=== PATIENT | male | born 1940 | race Caucasian/White ===

== ENCOUNTER 2018-10-04 14:47 | Outpatient (CLI) | payer MEDICARE ==
[~2018-10-04 14:47] MED LIST: HYDR1TAB PO; LOVA10TA56 PO; PRED20TA PO
[2018-10-04] MEDS ORDERED: CHOL100046 PO (15:49)
[2018-10-04] MEDS ORDERED: UBIQ100C3 PO (15:49)
[2018-10-04] MEDS ORDERED: LISI40TA4 PO (15:49)
[2018-10-04] MEDS ORDERED: IBUP-1984 PO (15:49)
[2018-10-04] MEDS ORDERED: ASPI-1265 PO (15:49)
[2018-10-04 17:02] LABS: BASOPHILS # (AUTO) 0.1 X10'3 (0-0.2); BASOPHILS % (AUTO) 0.6 % (0-1); EOSINOPHILS # (AUTO) 0.2 X10'3 (0-0.9); EOSINOPHILS % (AUTO) 2.2 % (0-6); LYMPHOCYTES % (AUTO) 20.8 % (21-51); MEAN CORPUSCULAR HEMOGLOBIN 31.1 PG (27.0-31.0); MEAN CORPUSCULAR HGB CONC 34.4 g/dL (33.0-36.5); MEAN CORPUSCULAR VOLUME 90.4 FL (78-98); MEAN PLATELET VOLUME 7.4 FL (7.4-10.4); MONOCYTES # (AUTO) 0.9 X10'3 (0-0.9); MONOCYTES % (AUTO) 9.3 % (2-12); NEUTROPHILS # (AUTO) 6.4 X10'3 (1.8-7.7); NEUTROPHILS % (AUTO) 67.1 % (42-75); PRE OP HEMATOCRIT 44.2 % (42.0-52.0); PRE OP HEMOGLOBIN 15.2 g/dL (14.0-17.9); PRE OP PLATELET COUNT 345 X10'3 (140-440); RED BLOOD COUNT 4.89 X10'6 (4.70-6.10); RED CELL DISTRIBUTION WIDTH 13.6 % (11.5-14.5)
[2018-10-04 17:14] LABS: ALBUMIN 3.8 G/DL (3.4-5.0); ALBUMIN/GLOBULIN RATIO 1.1 (1.1-1.5); ALKALINE PHOSPHATASE 83 IU/L (46-116); BLOOD UREA NITROGEN 20 MG/DL (7-18); BUN/CREATININE RATIO 24.7 (5.4-32.0); CALCIUM 9.2 MG/DL (8.5-10.1); CHLORIDE 103 MMOL/L (99-107); CREATININE 0.81 MG/DL (0.60-1.10); PRE OP ALT 37 U/L (30-65); PRE OP ANION GAP 9 (8-16); PRE OP AST 25 U/L (10-37); PRE OP BILIRUB, TOTAL 0.4 MG/DL (0.0-1.0); PRE OP GLUCOSE 80 MG/DL (70-104); PRE OP POTASSIUM 3.9 MMOL/L (3.4-5.1); PRE OP SODIUM 137 MMOL/L (135-145); TOTAL CARBON DIOXIDE 25.1 MMOL/L (24-32); TOTAL PROTEIN 7.2 G/DL (6.4-8.2); eGFR > 90 ML/MIN
== END 2018-10-04 23:59 | disposition home or self-care (01) ==
LOC: PRE-OP 14:47 → EDSTATUS 10-17 08:30
PROVIDERS: ATTEND Orthopaedic Surgery
DX: Z01.818 Encounter for other preprocedural examination (principal); M17.11 Unilateral primary osteoarthritis, right knee
CPT/HCPCS: 36415; 80053; 85025; 87070

== ENCOUNTER 2018-12-05 06:28 | Inpatient (IN) | payer MEDICARE ==
[2018-11-29 16:44] LABS: BASOPHILS # (AUTO) 0.1 X10'3 (0-0.2); BASOPHILS % (AUTO) 0.7 % (0-1); EOSINOPHILS # (AUTO) 0.2 X10'3 (0-0.9); EOSINOPHILS % (AUTO) 1.9 % (0-6); LYMPHOCYTES # (AUTO) 2.2 X10'3 (1.1-4.8); LYMPHOCYTES % (AUTO) 21.4 % (21-51); MEAN CORPUSCULAR HEMOGLOBIN 30.7 PG (27.0-31.0); MEAN CORPUSCULAR HGB CONC 34.2 g/dL (33.0-36.5); MEAN CORPUSCULAR VOLUME 89.9 FL (78-98); MEAN PLATELET VOLUME 7.2 FL (7.4-10.4); MONOCYTES % (AUTO) 9.4 % (2-12); NEUTROPHILS % (AUTO) 66.6 % (42-75); PRE OP HEMATOCRIT 45.7 % (42.0-52.0); PRE OP HEMOGLOBIN 15.6 g/dL (14.0-17.9); PRE OP PLATELET COUNT 324 X10'3 (140-440); RED BLOOD COUNT 5.08 X10'6 (4.70-6.10); RED CELL DISTRIBUTION WIDTH 13.7 % (11.5-14.5)
[2018-11-29 16:54] LABS: ALBUMIN 3.8 G/DL (3.4-5.0); ALBUMIN/GLOBULIN RATIO 1.2 (1.1-1.5); ALKALINE PHOSPHATASE 75 IU/L (46-116); BLOOD UREA NITROGEN 21 MG/DL (7-18); BUN/CREATININE RATIO 25.6 (5.4-32.0); CALCIUM 8.8 MG/DL (8.5-10.1); CHLORIDE 105 MMOL/L (99-107); CREATININE 0.82 MG/DL (0.60-1.10); PRE OP ALT 40 U/L (30-65); PRE OP ANION GAP 9 (8-16); PRE OP AST 20 U/L (10-37); PRE OP BILIRUB, TOTAL 0.4 MG/DL (0.0-1.0); PRE OP GLUCOSE 96 MG/DL (70-104); PRE OP POTASSIUM 3.9 MMOL/L (3.4-5.1); PRE OP SODIUM 140 MMOL/L (135-145); TOTAL CARBON DIOXIDE 26.4 MMOL/L (24-32); TOTAL PROTEIN 7.1 G/DL (6.4-8.2); eGFR > 90 ML/MIN
[~2018-12-05] VITALS: Ht 177.8 cm; Wt 86.2 kg
[2018-12-05] VITALS (18 sets, daily range): BP systolic 110–138; BP diastolic 56–89
[~2018-12-05 06:28] MED LIST changes: +ASPI-1265 PO; +CHOL100046 PO; -HYDR1TAB PO; +IBUP-1984 PO; +LISI40TA4 PO; +LORA10TA61 PO; -PRED20TA PO; +UBIQ100C3 PO; +acetaminophen 325mg tablet PO ONE; +cefazolin/dext.iso 2gm/100 ML IV ONE; +famotidine 20mg tablet PO ONE; +gabapentin 300mg capsule PO ONE; +metoclopramide 5 mg/ml inj IV ONE; +oxyCODONE SR 10mg (sust. release) tab PO ONE; +ringers solution, lacted 1,000 ML IV SCH; +tranexamic acid inj. 1,000 MG in normal saline 100 ML IV ONE; +vancomycin inj 1,500 MG in normal saline 300ml IV soln IV ONE
[2018-12-05] MEDS ORDERED: ceFAZolin 1000mg inj ONE (07:14)
[2018-12-05] MEDS ORDERED: morphine 10mg/ml inj. ONE (07:20)
[2018-12-05] MEDS ORDERED: ketorolac trometh. 30mg/ml inj. ONE (07:20)
[2018-12-05] MEDS ORDERED: epiNEPHrine 1 mg/ml inj ONE (07:20)
[2018-12-05] MEDS ORDERED: vancomycin 1,000mg inj ONE (07:21)
[2018-12-05] MEDS ORDERED: ROPIVAcaine 0.5% (5mg/ml) 30ml vial ONE ×3 (07:21→10:29)
[2018-12-05] MEDS ORDERED: MIDAZolam 1mg/ml 10ml vial ONE (08:42)
[2018-12-05] MEDS ORDERED: fentaNYL/PF 50MCG/1 ML 2ML syringe ONE ×2 (08:43→11:07)
[2018-12-05] MEDS ORDERED: sevoflurane 250ml liquid IH ONE (08:58)
[2018-12-05] MEDS ORDERED: LIDOcaine 1%/PF 5ML 10 MG/ML VIAL ONE (08:58)
[2018-12-05] MEDS ORDERED: Thrombin (Bovine) 5,000 unit vial TP ONE (10:00)
[2018-12-05] MEDS ORDERED: propofol inj 20 ML IV ONE (10:28)
[2018-12-05] MEDS ORDERED: dexamethasone sod phosphate 4mg/ml inj. ONE (10:29)
[2018-12-05] MEDS ORDERED: calcium chloride 100 MG/1 ML inj IV ONE (10:32)
[2018-12-05] MEDS ORDERED: diphenhydrAMINE 25mg capsule PO PRN ×2 (12:00)
[2018-12-05] MEDS ORDERED: ondansetron/PF 4mg/2ml inj IV PRN ×2 (12:00→12:10)
[2018-12-05] MEDS ORDERED: acetaminophen 325mg tablet PO PRN (12:00)
[2018-12-05] MEDS ORDERED: HYDROmorphone 1 mg/ml syringe IV PRN (12:00)
[2018-12-05] MEDS ORDERED: HYDROmorphone inj. 0.5 MG/0.5 ML DISP.SYRIN IV PRN (12:00)
[2018-12-05] MEDS ORDERED: bisacodyl 10mg suppository rectal RC PRN (12:00)
[2018-12-05] MEDS ORDERED: magnesium hydroxide 30ml (MOM) UD suspension PO PRN (12:00)
[2018-12-05] MEDS ORDERED: ringers solution, lacted 1,000 ML IV SCH (12:06)
[2018-12-05] MEDS ORDERED: proCHLORperazine 10 MG/2 ml inj IV PRN (12:10)
[2018-12-05] MEDS ORDERED: meperidine/PF 25mg/ml syringe IV PRN ×2 (12:10)
[2018-12-05] MEDS ORDERED: morphine 4 MG/ML inj SYRINge IV PRN ×2 (12:10)
--- NOTE | 2018-12-05 12:52 | NUR ---
Received from OR via ORTHO BED WITH [facility] , accompanied by Anesthesiologist DERICK and report given by Anesthesiolgist. PATIENT WITH 18G PIV IN RIGHT UE RUNNING LR AT 100. DENIES PAIN. FULL SENSATION AND + DORSALIS PEDIS. RIGHT KNEE DRESSING IS CDI. KNEE WRAP AND POWDER PACK IN PLACE. FULL SENSATION TO RIGHT LE. HOWEREVER DENIES PAIN. NERVE BLOCK SITE TO RIGHT, BHAVNA WALSH IN PLACE WELL. NO LEAKS. VSS, SHAQUILLE YIP AND BRAYDON GROVES. 2 BAGS OF BELONGINGS ON BED. Addendum: 12/05/18 at 1306 by Luis Bang RN, RN Amended: Links added.
[2018-12-05] MEDS: meperidine/PF 25mg/ml syringe IV PRN ×2 (13:11→13:53)
[2018-12-05] MEDS ORDERED: ROPIVAcaine 0.2%/PF PAIN PUMP 500 ML IJ SCH (13:30)
--- NOTE | 2018-12-05 13:40 | NUR ---
RECEIVED REPORT FROM CINDI FLORES
--- NOTE | 2018-12-05 13:52 | NUR ---
ALL CRITERIA FOR TRANSFER TO THE FLOOR HAS BEEN ACHIEVED. VSS. BED LOW, CALL LIGHT AND VS. SET IN PLACE. RN PRESENT TO ACCEPT CARE. PATIENT RESTING COMFORTABLY IN BED. BELONGINGS SENT WITH PATIENT. DRESSINGS CDI. DRESSING CDI. PAIN AT A TOLERABLE LEVEL- STATES PATIENT. CINDI MONTAGUE PRESENT TO ACCEPT CARE. Addendum: 12/05/18 at 1422 by Luis Bang RN, RN Amended: Links added.
[2018-12-05] MEDS: acetaminophen 325mg tablet PO SCH ×2 (14:00→20:45)
--- NOTE | 2018-12-05 14:15 | NUR ---
PT ARRIVED ON FLOOR IN ORTHO BED SLEEPY W/ AT BEDSIDE
[2018-12-05] MEDS: gabapentin 300mg capsule PO SCH (14:31)
[2018-12-05] MEDS: oxyCODONE IR 5mg (immed. release) tablet PO PRN ×2 (14:36→19:12)
[2018-12-05] MEDS: potassium cl 20mEq in 1/2 NS 1,000 ML IV SCH ×2 (14:56→20:00)
[2018-12-05] MEDS ORDERED: tranexamic acid inj. 860 MG in normal saline 100ml IV soln 100 ML IV ONE (15:00)
[2018-12-05] MEDS: ceFAZolin 1GM/D5W- ADD-VANTAGE 50 ML IV SCH (16:40)
--- NOTE | 2018-12-05 18:06 | NUR ---
GAVE REPORT TO CINDI HOUSE
[2018-12-05] MEDS ORDERED: ibuprofen tablet 400 MG TABLET PO PRN (19:10)
[2018-12-05] MEDS ORDERED: vancomycin/NS 1 GM ADD-VANTAGE 250 ML IV SCH (20:00)
[2018-12-05] MEDS: sennosides 8.6mg tablet PO SCH (21:00)
[2018-12-06] VITALS (9 sets, daily range): BP systolic 102–133; BP diastolic 46–74
[2018-12-06] MEDS: gabapentin 300mg capsule PO SCH ×4 (00:20→20:28)
[2018-12-06] MEDS: ceFAZolin 1GM/D5W- ADD-VANTAGE 50 ML IV SCH (00:21)
[2018-12-06] MEDS: oxyCODONE IR 5mg (immed. release) tablet PO PRN ×6 (00:27→20:29)
[2018-12-06] MEDS: potassium cl 20mEq in 1/2 NS 1,000 ML IV SCH ×3 (01:58→20:00)
[2018-12-06] MEDS: acetaminophen 325mg tablet PO SCH ×4 (02:01→20:28)
[2018-12-06 04:56] LABS: BASOPHILS % (AUTO) 0.3 % (0-1); EOSINOPHILS % (AUTO) 0.1 % (0-6); HEMATOCRIT 33.8 % (42.0-52.0); HEMOGLOBIN 11.6 g/dl (14.0-17.9); LYMPHOCYTES # (AUTO) 0.9 X10'3 (1.1-4.8); LYMPHOCYTES % (AUTO) 7.7 % (21-51); MEAN CORPUSCULAR HGB CONC 34.3 g/dL (33.0-36.5); MEAN CORPUSCULAR VOLUME 90.4 FL (78-98); MEAN PLATELET VOLUME 7.7 FL (7.4-10.4); MONOCYTES # (AUTO) 1.3 X10'3 (0-0.9); MONOCYTES % (AUTO) 11.9 % (2-12); PLATELET COUNT 253 X10'3 (140-440); RED BLOOD COUNT 3.74 X10'6 (4.70-6.10); RED CELL DISTRIBUTION WIDTH 13.6 % (11.5-14.5); WHITE BLOOD COUNT 11.2 X10'3 (4.5-11.0)
[2018-12-06 05:30] LABS: ANION GAP 9 (8-16); CHLORIDE 103 MMOL/L (99-107); POTASSIUM 4.4 MMOL/L (3.5-5.1); SODIUM 135 MMOL/L (135-145); TOTAL CARBON DIOXIDE 23.1 MMOL/L (24-32)
--- NOTE | 2018-12-06 06:25 | NUR ---
Patient in room ORTHO 4024. I have received report from Inez PUENTE and had the opportunity to ask questions and assume patient care.
[2018-12-06] MEDS ORDERED: WALKERFR (06:43)
[2018-12-06] MEDS: atorvastatin 10mg tablet PO SCH (07:35)
[2018-12-06] MEDS: lisinopril 20mg tablet PO SCH (07:44)
[2018-12-06] MEDS: vitamin D (cholecalciferol) 1,000 unit tablet PO SCH (07:44)
[2018-12-06] MEDS: enoxaparin 40mg/0.4ml syringe SQ SCH (07:45)
[2018-12-06] MEDS ORDERED: UBIQUINOL 100 MG PO SCH (08:00)
[2018-12-06] MEDS ORDERED: loratadine 10mg tablet PO PRN (08:00)
--- NOTE | 2018-12-06 09:08 | NUR ---
DC'd hernandez catheter at 0820. 1300ml clear yellow urine. Patient tolerated well.
--- NOTE | 2018-12-06 15:03 | NUR ---
Joint replacement consult: Pt seen by RD for written/verbal high protein ed. RD reviewed high protein needs for wound healing, immune strength, high protein foods, and protein supplementation options. RD contact information provided in case of further questions. Pt requests double salt packet TID, salsa w/ eggs, and gravy on meats TID; dietary notified. Addendum: 12/06/18 at [address] Amended: Links added.
--- NOTE | 2018-12-06 18:20 | NUR ---
Problems reprioritized. Patient report given, questions answered & plan of care reviewed with Ross Jama RN.
[2018-12-06] MEDS: sennosides 8.6mg tablet PO SCH (20:28)
[2018-12-06] MEDS: celeCOXIB 100mg capsule PO SCH (20:28)
[2018-12-07] MEDS: oxyCODONE IR 5mg (immed. release) tablet PO PRN ×2 (02:22→08:09)
[2018-12-07] MEDS: acetaminophen 325mg tablet PO SCH ×2 (02:23→08:07)
[2018-12-07] MEDS: potassium cl 20mEq in 1/2 NS 1,000 ML IV SCH (04:00)
[2018-12-07 05:47] LABS: BASOPHILS # (AUTO) 0.1 X10'3 (0-0.2); BASOPHILS % (AUTO) 0.8 % (0-1); EOSINOPHILS # (AUTO) 0.1 X10'3 (0-0.9); EOSINOPHILS % (AUTO) 1.4 % (0-6); HEMATOCRIT 33.4 % (42.0-52.0); HEMOGLOBIN 11.7 g/dl (14.0-17.9); LYMPHOCYTES # (AUTO) 0.9 X10'3 (1.1-4.8); LYMPHOCYTES % (AUTO) 10.9 % (21-51); MEAN CORPUSCULAR HEMOGLOBIN 31.6 PG (27.0-31.0); MEAN CORPUSCULAR HGB CONC 35.1 g/dL (33.0-36.5); MEAN PLATELET VOLUME 7.3 FL (7.4-10.4); MONOCYTES # (AUTO) 1.4 X10'3 (0-0.9); MONOCYTES % (AUTO) 15.7 % (2-12); NEUTROPHILS # (AUTO) 6.1 X10'3 (1.8-7.7); NEUTROPHILS % (AUTO) 71.2 % (42-75); PLATELET COUNT 242 X10'3 (140-440); RED BLOOD COUNT 3.72 X10'6 (4.70-6.10); RED CELL DISTRIBUTION WIDTH 13.7 % (11.5-14.5); WHITE BLOOD COUNT 8.6 X10'3 (4.5-11.0)
[2018-12-07 06:00] VITALS: BP 128/73
--- NOTE | 2018-12-07 06:05 | NUR ---
Patient in room ORTHO 4024. I have received report from Ross Jama RN and had the opportunity to ask questions and assume patient care.
--- NOTE | 2018-12-07 06:50 | NUR ---
Problems reprioritized. Patient report given, questions answered & plan of care reviewed with Tevin PUENTE.
[2018-12-07] MEDS: gabapentin 300mg capsule PO SCH (08:06)
[2018-12-07] MEDS: atorvastatin 10mg tablet PO SCH (08:06)
[2018-12-07] MEDS: celeCOXIB 100mg capsule PO SCH (08:06)
[2018-12-07] MEDS: vitamin D (cholecalciferol) 1,000 unit tablet PO SCH (08:07)
[2018-12-07] MEDS: lisinopril 20mg tablet PO SCH (08:08)
[2018-12-07] MEDS: enoxaparin 40mg/0.4ml syringe SQ SCH (08:09)
[2018-12-07 08:59] VITALS: BP 114/56
[2018-12-07] MEDS ORDERED: acetaminophen 325mg tablet PO PRN (12:00)
[2018-12-07] MEDS ORDERED: CPM (12:01)
--- NOTE | 2018-12-07 12:12 | NUR ---
Reviewed discharge instructions with pt and spouse. Pt verbalized understanding but stated he was in a hurry to leave. Pt was offered pain medication prior to discharging for which he declined. Pt declined to take all of his cold packs home. Pt refused to wait for the CPM machine to be delivered and wanted to be discharged so he could go to the cafeteria, have lunch and come back to the floor when the CPM machine arrived. Pt was wheeled downstairs to the cafeteria, accompanied by his spouse. All of pt's belongings were returned to pt. Pt is alert and oriented, does not have c/o pain at this time.
== END 2018-12-07 12:31 | disposition home health service (06) | DRG 467 ==
LOC: PAS IN 06:28 → EDSTATUS 08:30 → ORTHO 4S 14:15
PROVIDERS: ADMIT Orthopaedic Surgery; ATTEND Orthopaedic Surgery
PROC: 0SPC0JZ Removal of Synthetic Substitute from Right Knee Joint, Open Approach (ICD-10-PCS; 2018-12-05)
PROC: 0SUV09Z Supplement Right Knee Joint, Tibial Surface with Liner, Open Approach (ICD-10-PCS; 2018-12-05)
PROC: 8E0YXCZ Robotic Assisted Procedure of Lower Extremity (ICD-10-PCS; 2018-12-05)
PROC: 3E0T3BZ Introduction of Anesthetic Agent into Peripheral Nerves and Plexi, Percutaneous Approach (ICD-10-PCS; 2018-12-05)
PROC: 0SRC069 Replacement of Right Knee Joint with Oxidized Zirconium on Polyethylene Synthetic Substitute, Cemented, Open Approach (ICD-10-PCS; principal; 2018-12-05 08:50)
DX: M17.11 Unilateral primary osteoarthritis, right knee (principal); D62 Acute posthemorrhagic anemia; F17.210 Nicotine dependence, cigarettes, uncomplicated; E78.5 Hyperlipidemia, unspecified; I10 Essential (primary) hypertension; Z79.899 Other long term (current) drug therapy; Z79.82 Long term (current) use of aspirin
CPT/HCPCS: 36415; 80051; 80053; 82948; 85025; 87081; 97110; 97116; 97161; 97530; A4215; A4618; A6454; A7000; C1713; C1758; C1776; G0378; J0171; J0690; J1100; J1650; J1885; J2175; J2250; J2270; J2704; J2765; J2795; J3010; J3370; J3480; J7120; Q0163